=== PATIENT | female | born 1945 | race Caucasian/White ===

== ENCOUNTER 2017-08-10 10:15 | Day surgery (SDC) | payer MEDICARE, OTHER ==
[~2017-08-10] VITALS: Ht 157.5 cm; Wt 60.3 kg
[2017-08-10] MEDS ORDERED: METF500T PO (11:25)
[2017-08-10] MEDS ORDERED: MIDAZOLAM 2 MG/2 ML VIAL ONE (12:37)
[2017-08-10] MEDS ORDERED: fentaNYL 0.05 MG/ML VIAL ONE (12:37)
[2017-08-10] MEDS ORDERED: LIDOCAINE 2% 100 MG/5 ML UJET TP ONE (12:38)
== END 2017-08-10 14:20 | disposition home or self-care (01) ==
LOC: MDS 10:15 → MMU 10:26 → MDS 14:20
PROVIDERS: ATTEND Internal Medicine Gastroenterology
DX: D12.2 Benign neoplasm of ascending colon (principal); K21.9 Gastro-esophageal reflux disease without esophagitis; E66.3 Overweight; Z90.49 Acquired absence of other specified parts of digestive tract; Z98.890 Other specified postprocedural states; Z79.899 Other long term (current) drug therapy; Z68.27 Body mass index [BMI] 27.0-27.9, adult
CPT/HCPCS: 45385; 82948; J3010; J7030; J2250

== ENCOUNTER 2020-02-28 11:20 | Outpatient (CLI) | payer MEDICARE, OTHER ==
[~2020-02-28 11:20] MED LIST: METF500T PO
== END 2020-02-28 21:11 | disposition home or self-care (01) ==
LOC: MLB 11:20 → EDSTATUS 03-02 07:30
PROVIDERS: ATTEND Obstetrics & Gynecology
DX: Z20.828 Contact with and (suspected) exposure to other viral communicable diseases (principal)
CPT/HCPCS: U0003-CS